=== PATIENT | female | born 1950 | race Caucasian/White ===

== ENCOUNTER 2018-12-11 08:14 | Emergency (ER) | payer MEDICARE, BC ==
[~2018-12-11] VITALS: Ht 162.6 cm; Wt 56.8 kg
[2018-12-11] MEDS ORDERED: VENL150C43 PO (08:22)
--- NOTE | 2018-12-11 08:52 | REP ---
Right ankle four views: There is a nondisplaced spiral fracture of the distal fibular shaft. There is a transverse fracture at the base of the medial malleolus. The posterior malleolus is unremarkable. The mortise is symmetric. Mineralization is normal. There is circumferential soft tissue edema. Electronically Signed by Michael Alonzo MD 12/11/2018 08:43 A
[2018-12-11] MEDS ORDERED: IBUP80TA PO (10:00)
[2018-12-11 10:42] VITALS: BP 159/77
[2018-12-16] MEDS ORDERED: MULTCAP PO (10:53)
[2018-12-16] MEDS ORDERED: OSTETAB4 PO (10:53)
[2018-12-16] MEDS ORDERED: VITA50TA43 PO (10:53)
[2018-12-16] MEDS ORDERED: MAGN400C2 PO (10:53)
[2018-12-16] MEDS ORDERED: CALC600T27 PO (13:26)
[2018-12-16] MEDS ORDERED: VITACAP9 PO (13:26)
== END 2018-12-11 11:05 | disposition home or self-care (01) ==
LOC: M ED 08:14
DX: S82.831A Other fracture of upper and lower end of right fibula, initial encounter for closed fracture (principal); S82.51XA Displaced fracture of medial malleolus of right tibia, initial encounter for closed fracture; W00.9XXA Unspecified fall due to ice and snow, initial encounter; Y92.099 Unspecified place in other non-institutional residence as the place of occurrence of the external cause; Y93.K1 Activity, walking an animal; Y99.9 Unspecified external cause status; Z79.899 Other long term (current) drug therapy; Z88.2 Allergy status to sulfonamides

== ENCOUNTER 2018-12-17 12:19 | Day surgery (SDC) | payer MEDICARE, BC ==
[~2018-12-17] VITALS: Ht 162.6 cm; Wt 56.7 kg
[~2018-12-17 12:19] MED LIST: CALC600T27 PO; IBUP80TA PO; MAGN400C2 PO; MULTCAP PO; OSTETAB4 PO; VENL150C43 PO; VITA50TA43 PO; VITACAP9 PO
[2018-12-17] MEDS ORDERED: dexameTHASONE 10 MG/1 ML VIAL PRES.FREE (J1100) ONE (12:20)
[2018-12-17] MEDS ORDERED: ROPIvacaine 0.5% 30 ML INJECTION (J2795 PER 1MG) ONE (12:20)
[2018-12-17] MEDS ORDERED: LR 1,000 ML IV ONE (12:30)
[2018-12-17] MEDS ORDERED: LIDOCAINE 2% INJ 100 MG/5 ML SDV (FOR ANES.) As Ordered ONE (12:34)
[2018-12-17] MEDS ORDERED: ROCURONIUM BROMIDE 50 MG/5 ML VIAL As Ordered ONE (12:34)
[2018-12-17] MEDS ORDERED: PROPOFOL 200 MG/20 ML VIAL As Ordered ONE (12:34)
[2018-12-17] MEDS ORDERED: SUGAMMADEX SODIUM 500 MG/5 ML VIAL (BRIDION) As Ordered ONE (12:34)
[2018-12-17] MEDS ORDERED: ONDANSETRON 4MG/2ML VIAL (J2405) As Ordered ONE ×2 (12:35→17:15)
[2018-12-17] MEDS ORDERED: dexameTHASONE 4 MG/ML 1ML VIAL (J1100) As Ordered ONE (12:35)
[2018-12-17] MEDS ORDERED: fentaNYL 250 MCG/5 ML INJECTION (J3010) As Ordered ONE (12:36)
[2018-12-17] MEDS ORDERED: MIDAZOLAM INJ 2 MG/2 ML VIAL (J2250) As Ordered ONE ×2 (12:36→13:07)
[2018-12-17] MEDS ORDERED: fentaNYL 100 MCG/2 ML INJECTION (J3010) As Ordered ONE ×2 (13:07→17:15)
[2018-12-17] MEDS ORDERED: MIDAZOLAM INJ 2 MG/2 ML VIAL (J2250) IV ONE (14:15)
[2018-12-17] MEDS ORDERED: fentaNYL 100 MCG/2 ML INJECTION (J3010) IV ONE (14:15)
[2018-12-17] MEDS ORDERED: PERCOCET 5MG/325MG TAB As Ordered ONE (17:15)
[2018-12-17] MEDS: fentaNYL 100 MCG/2 ML INJECTION (J3010) IV PRN ×4 (17:15→17:41)
[2018-12-17] MEDS ORDERED: ONDANSETRON 4MG/2ML VIAL (J2405) IV PRN (17:30)
[2018-12-17] MEDS ORDERED: PERCOCET 5MG/325MG TAB PO PRN (17:30)
[2018-12-17] MEDS ORDERED: LR 1,000 ML IV SCH ×2 (17:30→18:00)
--- NOTE | 2018-12-17 18:26 | REP ---
RIGHT ANKLE, THREE VIEWS: Three views of the right ankle are performed. There is a metallic plate and multiple screws in the distal fibula, there are screws in the medial malleolus. Osseous structures are well aligned. Ankle mortise is anatomic. There is an overlying cast. Electronically Signed by Michael Toussaint MD 12/18/2018 01:34 P
[2018-12-17 19:15] VITALS: BP 119/59
--- NOTE | 2018-12-17 20:07 | REP ---
C-ARM VIEWS RIGHT ANKLE: Multiple C-ARM views of the right ankle are performed. Fracture of medial malleolus is noted. There is placement of sideplate and multiple metallic screws in the distal fibula and two metallic screws in the distal tibia and the medial malleolus. The ankle mortise is anatomic. 98 seconds of fluoroscopy time was utilized. Electronically Signed by Michael Toussaint MD 12/18/2018 02:17 P
--- NOTE | 2018-12-19 08:00 | RO ---
DATE OF PROCEDURE: 12/17/2018 PREPROCEDURE DIAGNOSIS: Right bimalleolar ankle fracture. POSTPROCEDURE DIAGNOSIS: Right bimalleolar ankle fracture. PROCEDURE: Open reduction, internal fixation right medial malleolus and lateral malleolus. SURGEON: Dr. Mesha Sherman JOB ANALYST: SIVAN Acevedo ANESTHESIA: General endotracheal popliteal nerve block. ESTIMATED BLOOD LOSS: 50 mL. TOURNIQUET TIME: 120 minutes. At 350 mmHg. COMPLICATIONS: None. CONDITION: Stable in recovery. IMPLANTS: 8-hole one-third tubular plate and two 3.5 mm cannulated screws. INDICATION: Lauren Stone is a pleasant 68-year-old female who sustained mechanical fall on the ice resulting in a bimalleolar ankle fracture. Given the displaced nature of her fracture, surgery was recommended. The risks and benefits of the surgery were discussed with the patient in detail and include but are not limited to infection, damage to the nerves and blood vessels, continued pain and stiffness, need for additional procedures, blood clot, malunion or nonunion. Informed consent was obtained in the office. DESCRIPTION OF PROCEDURE: Patient was met in the preoperative holding area where the right lower extremity was marked as the correct operative site. Her soft tissues were found to be amenable to surgery. She underwent a popliteal nerve block by the anesthesia team. She was then taken to the operating room and placed in the supine position on the operating room table. Her bony prominences were all padded. A well, padded tourniquet was placed in the right upper thigh. The right lower extremity underwent a chlorhexidine scrub. She was then prepped and draped in the normal sterile fashion. An official time-out was held and correct patient, operative procedure and operative site were confirmed. Esmarch was used to exsanguinate the leg and the tourniquet was inflated to 250 mmHg. At this point, an incision was made over the posterolateral aspect of the distal fibula. Blunt dissection was performed with care to avoid the superficial peroneal nerve. The fracture was identified and was somewhat proximal in the fibula. It was found to be comminuted with a somewhat large thin butterfly fragment posteriorly and a smaller fragment in the lateral aspect of the fracture. Given the comminuted nature of the fracture, I was unable to place lag screw. The decision was made to use a bridge plate. An 8-hole one-third tubular plate was selected. This was secured distally. Once it was secured distally, the fracture was reduced and held in place at the point of reduction clamp. Proximal screws were then placed. There was good bite on all screws. When I was satisfied with the reduction, attention was turned to the medial side of the ankle. An incision was made medially, centered over the medial malleolus. Careful dissection to bone was performed with care to avoid the saphenous vein. The fracture was identified and cleaned of hematoma and debris. It was held in place with a pointed reduction clamp. Two 3.5 mm cannulated screws were placed across the fracture site. A reduction of hardware placement of both the medial and lateral malleolus fractures were found to be satisfactory on AP, lateral, and mortise views. I did perform an external rotation stress test and there was no widening of the medial clear space. All wounds were copiously irrigated. The subcutaneous tissues were closed using #3-0 Vicryl and skin was closed using #3-0 nylon. A sterile dressing was applied and the patient was placed into a well-padded cast. PLAN: Patient will be non-weightbearing in the right lower extremity for 6 weeks. She will be on aspirin for deep venous thrombosis (DVT) prophylaxis. We will see her back in 2 weeks for a wound check and cast change. Nilay Winters was present for the entire case and was essential for soft tissue retraction, hardware replacement and aide in reduction. He helped close the incisions and placed the cast as well. His presence was important for overall decrease in tourniquet time.
== END 2018-12-17 19:45 | disposition home or self-care (01) ==
LOC: M SDC 12:19
PROVIDERS: ATTEND Orthopaedic Surgery
DX: S82.841A Displaced bimalleolar fracture of right lower leg, initial encounter for closed fracture (principal); W00.9XXA Unspecified fall due to ice and snow, initial encounter; Y92.89 Other specified places as the place of occurrence of the external cause; Y99.9 Unspecified external cause status; Y93.9 Activity, unspecified; M17.11 Unilateral primary osteoarthritis, right knee; Z79.899 Other long term (current) drug therapy; Z88.2 Allergy status to sulfonamides; Z87.891 Personal history of nicotine dependence
CPT/HCPCS: 27814; 73610; C1713; J0690; J1100; J2250; J2405; J2795; J3010